=== PATIENT | female | born 1990 | race Asian ===

== ENCOUNTER 2020-01-16 12:16 | Emergency (ER) | payer OTHER ==
[~2020-01-16] VITALS: Ht 157.5 cm; Wt 56.7 kg
[2020-01-16] MEDS ORDERED: FAMOTIDINE 20 MG TAB PO ONE (13:00)
[2020-01-16] MEDS ORDERED: diphenhydrAMINE 25MG CAP PO ONE (13:00)
[2020-01-16] MEDS ORDERED: PEPC1TAB5 PO (13:08)
[2020-01-16] MEDS ORDERED: BENA25CA4 PO (13:08)
[2020-01-16 13:15] VITALS: BP 134/77
== END 2020-01-16 13:17 | disposition home or self-care (01) ==
LOC: M ED 12:16
DX: R22.0 Localized swelling, mass and lump, head (principal); T39.315A Adverse effect of propionic acid derivatives, initial encounter; Z88.6 Allergy status to analgesic agent

== ENCOUNTER 2020-09-22 09:51 | Emergency (ER) | payer OTHER ==
[~2020-09-22] VITALS: Ht 157.5 cm; Wt 52.5 kg
[~2020-09-22 09:51] MED LIST: BENA25CA4 PO; PEPC1TAB5 PO
[2020-09-22] MEDS ORDERED: CEPH500C PO (09:57)
--- NOTE | 2020-09-22 11:20 | REP ---
INDICATION: 4 days ago threatened miscarriage, increased bleeding pain COMPARISON: None. TECHNIQUE: Transabdominal and transvaginal 1st trimester obstetrical ultrasound with color Doppler evaluation. FINDINGS: Anteverted uterus measures 8.7 x 4.6 x 6.1 cm. The endometrium is heterogeneous measuring 12 mm in maximal with without intrauterine identified. Findings suggest central hemorrhagic debris. Bilateral maternal ovaries are normal in appearance and vascularity. No pelvic fluid or adnexal mass lesion. IMPRESSION: Suspected hemorrhagic debris in the endocervical canal without intrauterine . Findings most compatible with spontaneous . Differential diagnosis less likely includes early and ectatic . Correlation with serial HCG levels recommended. <Electronically signed by Donovan Krishna > 09/22/20 [id number]
[2020-09-22 11:43] LABS: BASO % 0.5 % (0.0-1.0); EOS # 0.3 10^3/uL (0.0-0.5); EOS % 4.1 % (0.0-3.0); HEMATOCRIT 37.7 % (36.0-47.0); HEMOGLOBIN 12.2 g/dl (12.0-15.5); LYMPH # 1.5 10^3/uL (1.5-5.0); LYMPH % 23.7 % (24.0-44.0); MEAN CORPUSCULAR HEMOGLOBIN 28.9 pg (27.0-33.0); MEAN CORPUSCULAR HGB CONC 32.4 g/dl (32.0-36.5); MEAN CORPUSCULAR VOLUME 89.3 fl (80.0-96.0); MONO # 0.6 10^3/uL (0.0-0.8); NEUTROPHILS % 62.4 % (36.0-66.0); PLATELET COUNT, AUTOMATED 378 10^3/uL (150-450); RED BLOOD COUNT 4.22 10^6/uL (4.00-5.40); WHITE BLOOD COUNT 6.4 10^3/uL (4.0-10.0)
[2020-09-22 12:28] VITALS: BP 119/70
== END 2020-09-22 12:30 | disposition home or self-care (01) ==
LOC: M ED 09:51
DX: O20.0 Threatened abortion (principal); Z88.6 Allergy status to analgesic agent

== ENCOUNTER 2020-09-26 14:39 | Emergency (ER) | payer OTHER ==
[~2020-09-26] VITALS: Ht 157.5 cm; Wt 52.3 kg
[~2020-09-26 14:39] MED LIST changes: +CEPH500C PO
[2020-09-26 17:39] LABS: BASO # 0.1 10^3/uL (0.0-0.2); BASO % 0.5 % (0.0-1.0); EOS # 0.3 10^3/uL (0.0-0.5); EOS % 2.9 % (0.0-3.0); HEMOGLOBIN 13.8 g/dl (12.0-15.5); LYMPH # 1.8 10^3/uL (1.5-5.0); LYMPH % 18.2 % (24.0-44.0); MEAN CORPUSCULAR HGB CONC 32.1 g/dl (32.0-36.5); MEAN CORPUSCULAR VOLUME 90.3 fl (80.0-96.0); MONO # 0.7 10^3/uL (0.0-0.8); MONO % 6.7 % (2.0-8.0); NEUTROPHILS # 6.9 10^3/uL (1.5-8.5); NEUTROPHILS % 71.4 % (36.0-66.0); PLATELET COUNT, AUTOMATED 424 10^3/uL (150-450); RED BLOOD COUNT 4.76 10^6/uL (4.00-5.40); WHITE BLOOD COUNT 9.7 10^3/uL (4.0-10.0)
--- NOTE | 2020-09-26 17:48 | REP ---
INDICATION: smells burning smell COMPARISON: None. TECHNIQUE: PA and lateral. FINDINGS: The mediastinum and cardiac silhouette are normal. The lung cooper are clear and without acute consolidation, effusion, or pneumothorax. The skeletal structures are intact and normal. IMPRESSION: No acute cardiopulmonary process. <Electronically signed by Donovan Krishna > 09/26/20 [id number]
--- NOTE | 2020-09-26 20:25 | REPVR ---
PROCEDURE INFORMATION: Exam: CT Head Without Contrast Exam date and time: 09/26/2020 6:38 PM Age: 30 years old Clinical indication: Pain; Headache; Additional info: Headache/smells burning TECHNIQUE: Imaging protocol: Computed tomography of the head without contrast. Radiation optimization: All CT scans at this facility use at least one of these dose optimization techniques: automated exposure control; mA and/or kV adjustment per patient size (includes targeted exams where dose is matched to clinical indication); or iterative reconstruction. COMPARISON: No relevant prior studies available. FINDINGS: Brain: No intracranial mass, mass effect or midline shift. No acute intracranial hemorrhage. No CT evidence of acute cortical infarct. Ventricles, cisterns, and sulci are normal in size for age. Paranasal sinuses: Mucosal thickening or fluid is present diffusely in the paranasal sinuses. Mastoid air cells: Mastoid air cells and middle ear structures are normally aerated. Orbital cavity: Imaged orbits are unremarkable. Bones/joints: No calvarial fracture or destructive process. Soft tissues: No focal extracranial soft tissue swelling. IMPRESSION: 1. No acute or concerning focal intracranial abnormality. 2. Diffuse paranasal sinus opacification of unknown chronicity. There is suggestion of acute sinusitis given the loculated air within the sinus fluid Electronically signed by: Magdiel Espinosa On 09/26/2020 20:25:02 PM
[2020-09-26] MEDS ORDERED: AUGM875T28 PO (20:44)
[2020-09-26] MEDS ORDERED: PRED20TA PO (20:44)
[2020-09-26 20:56] VITALS: BP 118/72
== END 2020-09-26 20:57 | disposition home or self-care (01) ==
LOC: M ED 14:39
DX: J01.90 Acute sinusitis, unspecified (principal); Z88.8 Allergy status to other drugs, medicaments and biological substances

== ENCOUNTER 2021-05-25 12:09 | Emergency (ER) | payer OTHER ==
[~2021-05-25] VITALS: Ht 157.5 cm; Wt 55.6 kg
[~2021-05-25 12:09] MED LIST changes: +AUGM875T28 PO; +PRED20TA PO
[2021-05-25 12:10] VITALS: BP 137/76
[2021-05-25] MEDS ORDERED: FAMO20TA5 (12:16)
[2021-05-25 14:12] LABS: BASO % 0.6 % (0.0-1.0); EOS # 0.2 10^3/uL (0.0-0.5); EOS % 2.9 % (0.0-3.0); HEMATOCRIT 40.2 % (36.0-47.0); HEMOGLOBIN 13.1 g/dl (12.0-15.5); LYMPH # 1.9 10^3/uL (1.5-5.0); LYMPH % 26.6 % (24.0-44.0); MEAN CORPUSCULAR HEMOGLOBIN 29.8 pg (27.0-33.0); MEAN CORPUSCULAR HGB CONC 32.6 g/dl (32.0-36.5); MEAN CORPUSCULAR VOLUME 91.4 fl (80.0-96.0); MONO # 0.6 10^3/uL (0.0-0.8); MONO % 8.7 % (2.0-8.0); NEUTROPHILS # 4.4 10^3/uL (1.5-8.5); NEUTROPHILS % 60.9 % (36.0-66.0); PLATELET COUNT, AUTOMATED 334 10^3/uL (150-450); WHITE BLOOD COUNT 7.2 10^3/uL (4.0-10.0)
[2021-05-25 14:47] LABS: ALBUMIN 3.8 GM/DL (3.2-5.2); ALT/SGPT 22 U/L (12-78); BILIRUBIN,DIRECT < 0.1 MG/DL (0.0-0.2); BILIRUBIN,TOTAL 0.2 MG/DL (0.2-1.0); BLOOD UREA NITROGEN 14 MG/DL (7-18); CALCIUM LEVEL 9.3 MG/DL (8.5-10.1); CARBON DIOXIDE LEVEL 32 MEQ/L (21-32); CHLORIDE LEVEL 105 MEQ/L (98-107); CREATININE FOR GFR 0.78 MG/DL (0.55-1.30); GLOMERULAR FILTRATION RATE > 60.0 (>60); GLUCOSE, FASTING 87 MG/DL (70-100); LIPASE 189 U/L (73-393); SODIUM LEVEL 139 MEQ/L (136-145); TOTAL PROTEIN 7.3 GM/DL (6.4-8.2)
[2021-05-25 14:49] LABS: HCG, SERUM QUALITATIVE NEGATIVE (NEGATIVE)
[2021-05-25 16:14] LABS: CK-MB VALUE MASS < 1.0 NG/ML (<3.6); CPK CREATINE PHOSPHOKINASE 83 U/L (26-192)
[2021-05-25] MEDS ORDERED: GI COCKTAIL 50ML BTL(HYOSCYAMINE/MAALOX/LIDOCAINE VISCOUS)(1:3:1) PO ONE (16:20)
== END 2021-05-25 17:11 | disposition home or self-care (01) ==
LOC: M ED 12:09
DX: R07.9 Chest pain, unspecified (principal); K21.9 Gastro-esophageal reflux disease without esophagitis; Z88.6 Allergy status to analgesic agent

== ENCOUNTER 2021-06-22 12:47 | Day surgery (SDC) | payer OTHER ==
[~2021-06-22] VITALS: Ht 157.5 cm; Wt 55.1 kg
[~2021-06-22 12:47] MED LIST changes: +FAMO20TA5; +NS 1,000 ML IV ONE
[2021-06-22] MEDS ORDERED: propofoL 200 MG/20 ML VIAL As Ordered ONE (13:12)
[2021-06-22] MEDS ORDERED: LIDOCAINE 2% 100MG/5ML SDV (FOR ANES.) As Ordered ONE (13:12)
[2021-06-22 17:10] VITALS: BP 119/74
== END 2021-06-22 17:27 | disposition home or self-care (01) ==
LOC: M OPP 12:47
PROVIDERS: ATTEND Internal Medicine Gastroenterology
DX: K29.70 Gastritis, unspecified, without bleeding (principal); R12 Heartburn; Z88.8 Allergy status to other drugs, medicaments and biological substances; Z87.891 Personal history of nicotine dependence

== ENCOUNTER 2021-08-10 04:51 | Emergency (ER) | payer OTHER ==
[~2021-08-10] VITALS: Ht 152.4 cm; Wt 50.7 kg
[~2021-08-10 04:51] MED LIST changes: -NS 1,000 ML IV ONE
[2021-08-10] MEDS ORDERED: FAMO20TA5 PO (05:06)
[2021-08-10] MEDS ORDERED: PYRI1TAB5 PO (07:03)
[2021-08-10] MEDS ORDERED: BACT800T5 PO (07:07)
[2021-08-10] MEDS ORDERED: FLUCONAZOLE 50MG TABLET PO ONE (08:00)
[2021-08-10] MEDS ORDERED: FLUC150T9 PO (08:09)
[2021-08-10 08:52] VITALS: BP 118/68
== END 2021-08-10 08:53 | disposition home or self-care (01) ==
LOC: M ED 04:51
DX: N30.91 Cystitis, unspecified with hematuria (principal); B37.3 Candidiasis of vulva and vagina; K21.9 Gastro-esophageal reflux disease without esophagitis; Z88.8 Allergy status to other drugs, medicaments and biological substances

== ENCOUNTER → 2021-08-27 | Outpatient (REF) | payer OTHER ==
[~2021-08-27] MED LIST changes: +BACT800T5 PO; +FAMO20TA5 PO; +FLUC150T9 PO; +PYRI1TAB5 PO
== END ==
LOC: M LAB REF 22:10
PROVIDERS: ATTEND Physician Assistant
DX: R52 Pain, unspecified (principal)

== ENCOUNTER 2021-09-14 18:32 | Emergency (ER) | payer OTHER ==
[~2021-09-14] VITALS: Ht 157.5 cm; Wt 47.8 kg
[2021-09-14 18:33] VITALS: BP 125/82
== END 2021-09-14 22:03 | disposition left against medical advice (07) ==
LOC: M ED 18:32
DX: Z53.29 Procedure and treatment not carried out because of patient's decision for other reasons (principal)

== ENCOUNTER → 2022-02-01 | Outpatient (CLI) | payer OTHER ==
[2022-02-01 16:02] LABS: BASO % 0.6 % (0.0-1.0); EOS # 0.2 10^3/uL (0.0-0.5); EOS % 3.4 % (0.0-3.0); HEMATOCRIT 38.8 % (36.0-47.0); HEMOGLOBIN 12.5 g/dl (12.0-15.5); LYMPH # 1.8 10^3/uL (1.5-5.0); LYMPH % 26.3 % (24.0-44.0); MEAN CORPUSCULAR HGB CONC 32.2 g/dl (32.0-36.5); MONO # 0.6 10^3/uL (0.0-0.8); MONO % 8.2 % (2.0-8.0); NEUTROPHILS # 4.1 10^3/uL (1.5-8.5); NEUTROPHILS % 61.2 % (36.0-66.0); PLATELET COUNT, AUTOMATED 287 10^3/uL (150-450); RED BLOOD COUNT 4.31 10^6/uL (4.00-5.40); WHITE BLOOD COUNT 6.7 10^3/uL (4.0-10.0)
[2022-02-01 16:16] LABS: HCG, SERUM QUALITATIVE NEGATIVE (NEGATIVE)
[2022-02-01 16:32] LABS: ALBUMIN 4.1 GM/DL (3.2-5.2); ALT/SGPT 17 U/L (12-78); BILIRUBIN,DIRECT 0.1 MG/DL (0.0-0.2); BILIRUBIN,TOTAL 0.5 MG/DL (0.2-1.0); TOTAL PROTEIN 7.6 GM/DL (6.4-8.2)
== END ==
LOC: M PLALAB 12:14
PROVIDERS: ATTEND Internal Medicine Infectious Disease
DX: R76.11 Nonspecific reaction to tuberculin skin test without active tuberculosis (principal)

== ENCOUNTER 2022-07-11 11:27 | Emergency (ER) | payer OTHER, SELFPAY ==
[~2022-07-11] VITALS: Ht 154.9 cm; Wt 53.3 kg
[2022-07-11 11:28] VITALS: BP 132/72
== END 2022-07-11 11:32 | disposition left against medical advice (07) ==
LOC: M ED 11:27
DX: Z32.01 Encounter for pregnancy test, result positive (principal); Z53.21 Procedure and treatment not carried out due to patient leaving prior to being seen by health care provider

== ENCOUNTER 2023-02-17 04:20 | Inpatient (IN) | payer SELFPAY, OTHER ==
[~2023-02-17] VITALS: Ht 154.9 cm; Wt 74.1 kg
[2023-02-17] VITALS (39 sets, daily range): BP systolic 112–187; BP diastolic 60–106
[2023-02-17] MEDS ORDERED: CETI-24 PO (04:39)
[2023-02-17] MEDS ORDERED: PRENTAB9 PO (04:39)
[2023-02-17] MEDS ORDERED: TUMS500C PO (04:39)
[2023-02-17] MEDS ORDERED: HOME MED LIST COMPLETE! XX SCH (04:40)
[2023-02-17] MEDS ORDERED: TRANEXAMIC ACID INJection 1,000 MG in NS 100 ML IV PRN (05:00)
[2023-02-17] MEDS ORDERED: LIDOCAINE 1% MDV 20ML VIAL INFIL PRN (05:00)
[2023-02-17] MEDS ORDERED: METHYLERGONOVINE MALEATE 0.2MG/ML 1ML VIAL IM PRN (05:00)
[2023-02-17] MEDS ORDERED: CARBOPROST TROMETHAMINE 250 MCG/ML AMP IM PRN (05:00)
[2023-02-17] MEDS ORDERED: LACTATED RINGER'S 1000 ML IV STA (05:00)
[2023-02-17] MEDS ORDERED: OXYTOCIN DRIP 30 UNITS in IV 1 EA IV PRN ×6 (05:00)
[2023-02-17] MEDS ORDERED: OXYTOCIN INJ 10UNITS/ML 1ML VIAL IM PRN (05:00)
[2023-02-17 05:33] LABS: HEMATOCRIT 38.3 % (36.0-47.0); HEMOGLOBIN 13.2 g/dl (12.0-15.5); MEAN CORPUSCULAR HEMOGLOBIN 30.6 pg (27.0-33.0); MEAN CORPUSCULAR HGB CONC 34.5 g/dl (32.0-36.5); MEAN CORPUSCULAR VOLUME 88.7 fl (80.0-96.0); PLATELET COUNT, AUTOMATED 231 10^3/uL (150-450); RED BLOOD COUNT 4.32 10^6/uL (4.00-5.40); WHITE BLOOD COUNT 7.9 10^3/uL (4.0-10.0)
[2023-02-17 05:57] LABS: TOTAL PROTEIN,RANDOM URINE 6.3 MG/DL (0.0-14.0)
[2023-02-17 06:02] LABS: CREATININE,RANDOM URINE 25.1 MG/DL
[2023-02-17 06:11] LABS: URIC ACID 5.6 MG/DL (3.1-7.8)
[2023-02-17 06:13] LABS: LDH LACTATE DEHYDROGENASE 176 U/L (120-246)
[2023-02-17 06:14] LABS: ALT/SGPT 15 U/L (7.0-40); AST/SGOT 13 U/L (<34); BILIRUBIN,TOTAL 0.4 MG/DL (0.3-1.2); CREATININE FOR GFR 0.61 MG/DL (0.55-1.30); GLOMERULAR FILTRATION RATE > 60.0 (>60)
[2023-02-17] MEDS ORDERED: AMPICILLIN SOD 2 GM in D5W MINI-BAG PLUS 100 ML IV STA ×2 (06:18→07:53)
[2023-02-17] MEDS ORDERED: [UNRECOGNIZED DRUG - REMARK] XX SCH (09:00)
[2023-02-17] MEDS: LR 1,000 ML IV SCH ×2 (09:54→20:07)
[2023-02-17] MEDS ORDERED: AMPICILLIN SOD 1 GM in D5W MINI-BAG PLUS 50 ML IV SCH (10:30)
[2023-02-17] MEDS ORDERED: PROMETHAZINE 25MG/ML 1ML VIAL IV ONE ×2 (10:50→17:55)
[2023-02-17] MEDS ORDERED: NALBUPHINE HCL 1MG/0.1ML (100MG/10ML) MDV IV ONE ×2 (10:50→17:55)
[2023-02-17] MEDS: AMPICILLIN SOD 1 GM in D5W MINI-BAG PLUS 50 ML IV SCH ×3 (12:11→20:24)
[2023-02-17] MEDS ORDERED: LR 1,000 ML IV SCH (15:40)
[2023-02-17] MEDS ORDERED: OXYTOCIN DRIP 30 UNITS in IV 1 EA IV SCH (15:40)
[2023-02-17] MEDS ORDERED: EPIDURAL/PCA KEYS XX PRN (19:30)
[2023-02-17] MEDS ORDERED: FENTANYL/ROPIVACAINE/NACL BAG 100 ML EPIDURAL SCH (19:30)
[2023-02-17] MEDS ORDERED: ePHEDrine SULFATE 25 MG/5 ML(5MG/ML) SYRINGE IVP PRN (19:30)
[2023-02-17] MEDS ORDERED: diphenhydrAMINE 50MG/ML VIAL IV PRN (19:30)
[2023-02-17] MEDS ORDERED: LR 500 ML IV PRN (19:30)
[2023-02-17] MEDS ORDERED: NALOXONE INJ 0.4MG/1ML VIAL IV PRN (19:30)
[2023-02-17] MEDS ORDERED: ONDANSETRON 4MG 2ML VIAL IV PRN (19:30)
[2023-02-18] VITALS (8 sets, daily range): BP systolic 98–159; BP diastolic 55–121; O2SAT 98–99
[2023-02-18] MEDS: AMPICILLIN SOD 1 GM in D5W MINI-BAG PLUS 50 ML IV SCH (00:46)
[2023-02-18] MEDS ORDERED: METOCLOPRAMIDE INJ 10MG/2ML VIAL IV PRN (03:40)
[2023-02-18] MEDS ORDERED: IBUPROFEN 800 MG TAB PO PRN (03:40)
[2023-02-18] MEDS ORDERED: ACETAMINOPHEN 500 MG TAB PO PRN (03:40)
[2023-02-18] MEDS ORDERED: RHOGAM 300MCG (1500IU) INJ IM SCH (03:40)
[2023-02-18] MEDS ORDERED: METHYLERGONOVINE MALEATE 0.2 MG TAB PO PRN (03:40)
[2023-02-18] MEDS ORDERED: DIBUCAINE 1% OINTMENT 30GM TOP PRN (03:40)
[2023-02-18] MEDS ORDERED: IBUPROFEN 600MG TAB PO PRN (03:40)
[2023-02-18] MEDS ORDERED: MOM 30ML SUSPENSION UDC PO PRN (03:40)
[2023-02-18] MEDS ORDERED: DOCUSATE SODIUM 100MG CAPSULE PO PRN (03:40)
[2023-02-18] MEDS ORDERED: OXYTOCIN DRIP 30 UNITS in IV 1 EA IV SCH ×4 (03:40)
[2023-02-18] MEDS: LR 1,000 ML IV SCH ×2 (03:53→08:35)
[2023-02-18] MEDS: GABAPENTIN 300 MG CAP PO PRN ×2 (04:35→20:16)
[2023-02-18] MEDS: CETIRIZINE (ZyrTEC) 10 MG TAB PO SCH (08:34)
[2023-02-18] MEDS: PRENATAL VITAMINS CHEWABLE TABLET PO SCH (08:34)
[2023-02-18] MEDS: MIRALAX *UNIT DOSE* 17GM PACKET PO SCH ×2 (08:35→20:16)
[2023-02-18] MEDS: ACETAMINOPHEN TAB 650MG DOSE (2X325MG) PO PRN ×2 (08:57→09:57)
[2023-02-18] MEDS ORDERED: PRENATAL VITAMINS CHEWABLE TABLET PO SCH (09:00)
[2023-02-18] MEDS ORDERED: cefoTEtan DISODIUM 2 GM in D5W MINI-BAG PLUS 50 ML IV ONE (09:00)
[2023-02-19] MEDS: MIRALAX *UNIT DOSE* 17GM PACKET PO SCH ×2 (07:26→21:16)
[2023-02-19] MEDS: CETIRIZINE (ZyrTEC) 10 MG TAB PO SCH (07:26)
[2023-02-19] MEDS: PRENATAL VITAMINS CHEWABLE TABLET PO SCH (07:27)
[2023-02-19] MEDS ORDERED: ACET1TAB55 PO (10:35)
[2023-02-19] MEDS ORDERED: MIRA1POW3 PO (10:35)
[2023-02-19] MEDS ORDERED: COLA100C5 PO (10:35)
[2023-02-19 18:00] VITALS: BP 130/80; O2SAT 96
[2023-02-20 06:22] VITALS: BP 123/80; O2SAT 98
[2023-02-20] MEDS ORDERED: MEASLES,MUMPS,RUBELLA VACCINE INJ (MMR-II) SC.IMMUN ONE (09:00)
[2023-02-20] MEDS: PRENATAL VITAMINS CHEWABLE TABLET PO SCH (09:19)
[2023-02-20] MEDS: MIRALAX *UNIT DOSE* 17GM PACKET PO SCH (09:19)
[2023-02-20] MEDS: CETIRIZINE (ZyrTEC) 10 MG TAB PO SCH (09:19)
== END 2023-02-20 12:55 | disposition home or self-care (01) | DRG 542 ==
LOC: M LDO 04:20 → M LDI 05:32 → M OBS 02-18 05:50
PROVIDERS: ADMIT Obstetrics & Gynecology; ATTEND Obstetrics & Gynecology
PROC: 10E0XZZ Delivery of Products of Conception, External Approach (ICD-10-PCS; principal; 2023-02-18)
PROC: 0DQR0ZZ Repair Anal Sphincter, Open Approach (ICD-10-PCS; 2023-02-18)
PROC: 0HQ9XZZ Repair Perineum Skin, External Approach (ICD-10-PCS; 2023-02-18)
DX: O48.0 Post-term pregnancy (principal); O70.22 Third degree perineal laceration during delivery, IIIb; F41.9 Anxiety disorder, unspecified; O70.0 First degree perineal laceration during delivery; O14.04 Mild to moderate pre-eclampsia, complicating childbirth; O99.824 Streptococcus B carrier state complicating childbirth; Z3A.40 40 weeks gestation of pregnancy; O99.344 Other mental disorders complicating childbirth; Z88.6 Allergy status to analgesic agent; Z79.899 Other long term (current) drug therapy; Z37.0 Single live birth; O32.6XX0 Maternal care for compound presentation, not applicable or unspecified